=== PATIENT | female | born 1975 | race Caucasian/White ===

== ENCOUNTER 2017-04-17 09:45 | Emergency (ER) | payer OTHER ==
[~2017-04-17] VITALS: Ht 170.2 cm; Wt 73.0 kg
[~2017-04-17 09:45] MED LIST: FLUVOXAMINE MA100 MG PO; SEASONIQUE 01 TABLET PO
[2017-04-17] MEDS ORDERED: MOTRIN800 MG PO (10:09)
[2017-04-17] MEDS ORDERED: FLEXERIL10 MG PO (10:09)
[2017-04-17 10:24] VITALS: BP 145/87
== END 2017-04-17 10:25 | disposition home or self-care (01) ==
LOC: EME 09:45
DX: S16.1XXA Strain of muscle, fascia and tendon at neck level, initial encounter (principal); S70.01XA Contusion of right hip, initial encounter; V49.40XA Driver injured in collision with unspecified motor vehicles in traffic accident, initial encounter; Y92.411 Interstate highway as the place of occurrence of the external cause
CPT/HCPCS: 99281; 99283